=== PATIENT | female | born 1990 | race Two or more races ===

== ENCOUNTER 2017-05-24 12:04 | Emergency (ER) | payer OTHER ==
[~2017-05-24] VITALS: Ht 162.6 cm; Wt 72.6 kg
[2017-05-24 12:09] VITALS: BP 107/58
== END 2017-05-24 13:19 | disposition home or self-care (01) ==
LOC: ER 12:08
DX: J06.9 Acute upper respiratory infection, unspecified (principal)
CPT/HCPCS: A4606; Z7610